=== PATIENT | male | born 1970 | race Two or more races ===

== ENCOUNTER → 2024-10-02 | Outpatient (CLI) | payer OTHER | END | disposition home or self-care (01) | LOC: SONOGRAMA 09:56 | PROVIDERS: ATTEND Internal Medicine Gastroenterology | DX: K80.20 Calculus of gallbladder without cholecystitis without obstruction (principal) ==

== ENCOUNTER → 2024-10-27 08:01 | Outpatient (CLI) | payer OTHER | END | disposition home or self-care (01) | LOC: NUCLEAR 08:01 | PROVIDERS: ATTEND Internal Medicine | DX: I11.9 Hypertensive heart disease without heart failure (principal) ==

== ENCOUNTER 2025-06-04 13:59 | Emergency (ER) | payer OTHER ==
[~2025-06-04] VITALS: Ht 162.6 cm; Wt 90.7 kg
[2025-06-04] MEDS ORDERED: PROTONIX20 MG PO (14:04)
[2025-06-04] MEDS ORDERED: ENALAPRIL M1 MG/1 ML (14:04)
[2025-06-04] MEDS ORDERED: CETIRIZINE HCL 5 MG/5 ML ML PO ONE (14:30)
[2025-06-04] MEDS ORDERED: ACETAMINOPHEN 500 MG GEL..CAP PO ONE (14:30)
[2025-06-04] MEDS ORDERED: GUAIFENESIN/DEXTROMETHORPHAN 100MG/10ML BLIST.PACK PO ONE (14:30)
[2025-06-04] MEDS ORDERED: 0.9 % SODIUM CHLORIDE 500 ML IV ONE (14:45)
[2025-06-04] MEDS ORDERED: IPRATROPIUM BROMIDE 0.5 MG/2.5 ML AMPUL.NEB IH SCH (14:45)
[2025-06-04] MEDS ORDERED: LEVALBUTEROL HCL 1.25 MG/3 ML SOLUTION IH SCH (14:45)
[2025-06-04 14:59] LABS: ABG PH 7.486 (7.35-7.45); ABG PO2 86.9 mmHg (80-100); BICARBONATE 25.1 mmol/l (23-25); o2 21 %
[2025-06-04 15:34] LABS: BASO % 0.6 % (0.1-1.2); EOS # 0.01 (0.04-0.54); EOS % 0.1 % (0.7-7.0); LYMPH # 0.78 (1.18-3.74); LYMPH % 7.9 % (19.3-53.1); MEAN PLATELET VOLUME 10.70 fl (9.4-12.4); MONO # 1.31 (0.24-0.82); NEUT # 7.63 (1.56-6.13); NEUT % 77.2 % (34.0-71.1); RED CELL DISTRIBUTION WIDTH 12.3 % (11.6-14.4)
[2025-06-04 15:46] LABS: COVID-19 AG NEGATIVE (NEGATIVE)
[2025-06-04 16:00] LABS: ALT/SGPT 39.0 U/L (12-78); AST/SGOT 23.0 U/L (15-37); BILIRUBIN TOTAL 0.52 mg/dL (0.3-1.2); BUN CREA RATIO 14.0 (7.0-25.0); CREATININE SERUM 1.09 mg/dL (0.70-1.30); GFR 70.76; GLOBULINA 3.2 G/DL (2.4-3.5); GLUCOSE FASTING 105.0 mg/dL (65-100); OSMOLALITY SERUM 277.0 MOSM/KG (275-295)
[2025-06-04] MEDS ORDERED: OSELTAMIVIR PHOSPHATE 75 MG CAPSULE PO ONE (16:00)
[2025-06-04 16:06] LABS: INR 1.05
[2025-06-04 16:09] LABS: MONO % 13.3 % (4.7-12.5)
[2025-06-04 16:22] LABS: URINE APPEARANCE Clear; URINE BILIRRUBIN Negative (NEGATIVE); URINE BLOOD Negative; URINE COLOR Yellow; URINE KETONE Negative (NEGATIVE); URINE LEUKOCYTE Negative; URINE NITRATE Negative; URINE PROTEIN Negative (NEGATIVE); URINE UROBILINOGEN 1.0 E.U./dl
[2025-06-04 16:26] LABS: URINE BACTERIA 1.2 uL (0.0-1933); URINE CAST 0.00 uL (0.0-1.40); URINE EPITHELIAL CELLS 1.2 uL (0.0-38.8); URINE GLUCOSE 100 MG/DL (NEGATIVE); URINE RBC 0.7 uL (0.0-20.8); URINE WBC 1.5 uL (0.0-23.2)
[2025-06-04] MEDS ORDERED: IPRATROPIU0.2 MG/1 M IH (18:38)
[2025-06-04] MEDS ORDERED: OSEL75CA PO (18:38)
[2025-06-04] MEDS ORDERED: XOPENEX CO1.25 MG/0. IH (18:38)
[2025-06-04] MEDS ORDERED: ZYRTEC10 MG PO (18:38)
[2025-06-04] MEDS ORDERED: TUSSIN DM 200-118 ML PO (18:38)
== END 2025-06-04 19:06 | disposition home or self-care (01) ==
LOC: ER 13:59
PROVIDERS: General Practice
DX: J10.1 Influenza due to other identified influenza virus with other respiratory manifestations (principal); Z20.822 Contact with and (suspected) exposure to COVID-19; I10 Essential (primary) hypertension; Z87.09 Personal history of other diseases of the respiratory system

== ENCOUNTER 2025-09-24 09:29 | Emergency (ER) | payer OTHER ==
[~2025-09-24] VITALS: Ht 162.6 cm; Wt 95.3 kg
[~2025-09-24 09:29] MED LIST: ENALAPRIL M1 MG/1 ML; IPRATROPIU0.2 MG/1 M IH; OSEL75CA PO; PROTONIX20 MG PO; TUSSIN DM 200-118 ML PO; XOPENEX CO1.25 MG/0. IH; ZYRTEC10 MG PO
[2025-09-24] MEDS ORDERED: ENALAPRIL MALEAT5 MG PO (10:12)
[2025-09-24] MEDS ORDERED: LEVALBUTEROL HCL 0.63 MG/3 ML SOLUTION IH SCH (10:45)
[2025-09-24] MEDS ORDERED: METHYLPREDNISOLONE SOD SUCC 125 MG VIAL IV ONE (10:45)
[2025-09-24] MEDS ORDERED: 0.9 % SODIUM CHLORIDE 1,000 ML IV SCH (10:45)
[2025-09-24] MEDS ORDERED: IPRATROPIUM BROMIDE 0.5 MG/2.5 ML AMPUL.NEB IH SCH (10:45)
[2025-09-24] MEDS ORDERED: BUDESONIDE 0.5 MG/2 ML AMPUL.NEB IH ONE ×2 (10:45→12:42)
[2025-09-24] MEDS ORDERED: METHYLPREDNISOLONE SOD SUCC 125 MG VIAL ONE (11:28)
[2025-09-24 12:18] LABS: BASO % 1.0 % (0.1-1.2); EOS # 0.49 (0.04-0.54); EOS % 6.1 % (0.7-7.0); LYMPH # 2.22 (1.18-3.74); LYMPH % 27.7 % (19.3-53.1); MEAN PLATELET VOLUME 10.90 fl (9.4-12.4); MONO # 0.73 (0.24-0.82); MONO % 9.1 % (4.7-12.5); NEUT # 4.47 (1.56-6.13); NEUT % 55.9 % (34.0-71.1); RED CELL DISTRIBUTION WIDTH 12.1 % (11.6-14.4)
[2025-09-24] MEDS ORDERED: IPRATROPIUM BROMIDE 0.5 MG/2.5 ML AMPUL.NEB IH ONE (12:42)
[2025-09-24] MEDS ORDERED: LEVALBUTEROL HCL 0.63 MG/3 ML SOLUTION IH ONE (12:43)
[2025-09-24 13:10] LABS: ALT/SGPT 58.0 U/L (12-78); AST/SGOT 21.0 U/L (15-37); BILIRUBIN TOTAL 0.44 mg/dL (0.3-1.2); BUN CREA RATIO 16.0 (7.0-25.0); CREATININE SERUM 1.0 mg/dL (0.70-1.30); GFR 78.16; GLOBULINA 3.6 G/DL (2.4-3.5); GLUCOSE FASTING 96.0 mg/dL (65-100); OSMOLALITY SERUM 282.0 MOSM/KG (275-295)
[2025-09-24 13:15] LABS: COVID-19 AG NEGATIVE (NEGATIVE)
== END 2025-09-24 21:01 | disposition home or self-care (01) ==
LOC: ER 09:30
PROVIDERS: General Practice
DX: J45.909 Unspecified asthma, uncomplicated (principal); I10 Essential (primary) hypertension; K21.9 Gastro-esophageal reflux disease without esophagitis; Z20.822 Contact with and (suspected) exposure to COVID-19